=== PATIENT | female | born 1965 | race Caucasian/White ===

== ENCOUNTER → 2018-04-17 18:04 | Outpatient (CLI) | payer BC | END | disposition home or self-care (01) | LOC: D.MAMMO 15:30 | DX: Z12.31 Encounter for screening mammogram for malignant neoplasm of breast (principal) ==

== ENCOUNTER → 2019-04-29 17:06 | Outpatient (CLI) | payer BC | END | disposition home or self-care (01) | LOC: D.MAMMO 04-07 10:00 | PROVIDERS: ATTEND Nurse Practitioner Family | DX: N64.4 Mastodynia (principal) ==

== ENCOUNTER 2020-09-02 11:15 | Outpatient (CLI) | payer BC | END 2020-09-02 11:30 | disposition home or self-care (01) | LOC: D.MAMMO 11:15 | PROVIDERS: ATTEND Family Medicine | DX: Z12.31 Encounter for screening mammogram for malignant neoplasm of breast (principal) ==